=== PATIENT | female | born 1980 | race Caucasian/White ===

== ENCOUNTER 2016-03-28 10:44 | Emergency (ER) | payer OTHER ==
[2016-03-28] MEDS ORDERED: ACETAMINOPHEN 325 MG TAB As Ordered ONE (11:35)
[2016-03-28] MEDS ORDERED: IBUPROFEN 600 MG TAB As Ordered ONE (11:35)
--- NOTE | 2016-03-28 12:44 | REP ---
Clinical: Trauma . Technique: AP, lateral, bilateral oblique views of the left elbow. Findings: No acute fracture or dislocation is appreciated. Joint spaces and surrounding soft tissues appear normal. Lateral view demonstrates normal positioning to the anterior and posterior fat pads without evidence for effusion/hemarthrosis. No subcutaneous emphysema or foreign body identified. Impression: Normal left elbow radiographs. No fracture or dislocation identified. Signed by Walker Parker MD 03/28/2016 12:35 P
--- NOTE | 2016-03-28 13:20 | EDDOCDS ---
Physician Documentation [facility] Name: Barbara Gutierrez Age: 35 yrs Sex: Female : 1980 Arrival Date: 03/28/2016 Time: 10:44 Bed TR8 Private MD: NO PRIMARY PHYSICIAN, . Disposition: 03/28/16 13:02 Discharged to Home/Self Care. Impression: Contusion of left elbow. - Condition is Stable. - Discharge Instructions: Elbow Contusion. - Prescriptions for Ibuprofen 600 mg Oral Tablet - take 1 tablet by ORAL route every 6 hours As needed take with food; 30 tablet. Tylenol 325 mg Oral Tablet - take 2 tablet by ORAL route every 6 hours as needed; 1 bottle. - Medication Reconciliation, Local Pharmacy Hours form. - Follow up: [facility]; When: 4 - 5 days; Reason: Continuance of care. Follow up: Emergency Department; When: As needed; Reason: Worsening of conditions. - Problem is new. - Symptoms have improved. Historical: - Allergies: no known allergies; - Social history: Smoking status: Patient uses tobacco products, heavy tobacco smoker. No barriers to communication noted, The patient speaks fluent Malaysian. - Family history: Not pertinent. - : The pt / caregiver states he / she is not on anticoagulants. Home medication list is obtained from the patient. - Exposure Risk Screening:: None identified. 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 1 in. (154.94 cm) (R); 12:55 BP 121 / 78; Pulse 78; Resp 18; Temp 98.3(O); Pulse Ox 98% on R/A; Pain 1/10; dem1 10:45 Body Mass Index 26.45 (63.50 kg, 154.94 cm) dd6 MDM: 11:30 Sling ordered. dk1 11:30 Ice Pack ordered. dk1 11:30 Ibuprofen 600 mg PO once ordered. dk1 11:30 Acetaminophen Tablet 650 mg PO once ordered. dk1 11:30 Elbow, Complete Ordered. EDMS 12:10 Financial registration complete. lg 12:12 [facility] Payment Agreement was scanned into [employer] and attached to record. jp5 12:12 Undo -Financial registration. jp5 12:12 Financial registration complete. jp5 Administered Medications: 11:38 Drug: Ibuprofen 600 mg [ibuprofen 600 mg tablet (1 tabs)] Route: PO; kcs 11:38 Drug: Acetaminophen 650 mg [acetaminophen 325 mg tablet (2 tabs)] Route: PO; kcs Signatures: Dispatcher [employer] EDMS Yary Harrell, RN RN dls Jessica Best, Reg Reg lg Robert Koenig, PA-C PA-C dk1 Suyapa Galarza RN RN ms18 Hyacinth García jp5 Ghazal De La O RN kcs The chart was reviewed and I authenticate all verbal orders and agree with the evaluation and treatment provided.Attachments: 12:12 [facility] Payment Agreement jp5 MTDD
--- NOTE | 2016-03-28 13:20 | EDDOCDS ---
Nurse's Notes [facility] Name: Barbara Gutierrez Age: 35 yrs Sex: Female : 1980 Arrival Date: 03/28/2016 Time: 10:44 Bed TR8 Private MD: NO PRIMARY PHYSICIAN, . Diagnosis: Contusion of left elbow Presentation: 03/28 11:03 Presenting complaint: Patient states: Pt presents with injury to left arm and elbow pt dls fell on the ice this morning. Adult Sepsis Screening: The patient does not have new or worsening altered mentation. Patient's respiratory rate is less than 22. Systolic blood pressure is greater than 100. Patient has a qSOFA score of 0- Negative Sepsis Screen. Suicide/Homicide risk assessment- the patient denies having any suicidal and/or homicidal ideations and does not present with any other emotional, behavioral or mental health complaints. 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 Transition of care: patient was not received from another setting of care. 11:03 Acuity: ROSANA Level 4 dls 11:03 Method Of Arrival: Walkin/Carried/Asstd dls Triage Assessment: 11:05 General: Appears uncomfortable, well developed, Behavior is cooperative. Pain: Pain dls currently is 5 out of 10 on a pain scale. HIV screening NA for this visit Offered previously. 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 No barriers to communication noted, The patient speaks fluent French. - Family history: Not pertinent. - : The pt / caregiver states he / she is not on anticoagulants. Home medication list is obtained from the patient. - Exposure Risk Screening:: None identified. Screenin:17 Screening information is obtained from the patient. Fall risk: No risks identified. ms18 Assistance ADL's: requires no assistance with activities of daily living. Abuse/DV Screen: The patient / caregiver reports he/she is: not in a situation that causes fear, pain or injury. Nutritional screening: No deficits noted. Advance Directives: There is no living will. home support is adequate. Assessment: 13:17 General: Appears in no apparent distress, comfortable, Behavior is appropriate for age, ms18 cooperative. Pain: Location: left elbow Pain currently is 5 out of 10 on a pain scale. Neurological: No deficits noted. Respiratory: No deficits noted. Derm: Skin is pink, warm & dry. Musculoskeletal: Range of motion limited in left elbow No deformity noted. Vital Signs: 10:45 BP 148 / 85; Pulse 111; Resp 18 S; Temp 97.4(O); Pulse Ox 100% on R/A; Weight 63.5 kg dd6 (R); Height 5 ft. 1 in. (154.94 cm) (R); 12:55 BP 121 / 78; Pulse 78; Resp 18; Temp 98.3(O); Pulse Ox 98% on R/A; Pain 1/10; dem1 10:45 Body Mass Index 26.45 (63.50 kg, 154.94 cm) dd6 Vitals: 10:45 Log In Time: March 28, 2016 at 10:43. dd6 ED Course: 10:45 Patient visited by Jonathan Ro PCA. dd6 10:45 NO PRIMARY PHYSICIAN, . is Private Physician. dd6 10:45 Patient moved to Waiting dd6 10:46 Patient moved to Pre RCE dd6 11:05 Triage Initiated dls 11:18 Robert Koenig PA-C is PHCP. dk1 11:18 Julisa Helton MD is Attending Physician. dk1 11:27 Patient moved to Triage 2 ms18 11:28 Patient visited by Robert Koenig PA-C. dk1 11:38 Patient moved to PR1 / 25 ms18 11:52 Patient moved to TR2 kcs 12:12 [facility] Payment Agreement was scanned into [employer] and attached to record. jp5 12:50 Patient moved to PR2 / 26 ct3 12:55 Elbow, Complete Returned. EDMS 12:56 Patient visited by Kimmy Delong. dem1 13:02 [facility] is Referral Physician. dk1 13:17 Patient moved to TR8 ms18 13:17 The patient / caregiver is instructed regarding the plan of care and ED course. Patient ms18 has correct armband on for positive identification. Property sent home with patient. :Personal belongings accompany Pt. 13:17 No IV's were initiated during this patient's visit. No procedures done that require ms18 assistance. 13:17 Sling applied to left arm. Patient with positive distal sensation and brisk distal ms18 capillary refill after application. Administered Medications: 11:38 Drug: Ibuprofen 600 mg [ibuprofen 600 mg tablet (1 tabs)] Route: PO; kcs 11:38 Drug: Acetaminophen 650 mg [acetaminophen 325 mg tablet (2 tabs)] Route: PO; kcs Order Results: Radiology Order: Elbow, Complete Test: Elbow, Complete REASON FOR EXAMINATION: Trauma; Clinical: Trauma .; ; Technique: AP, lateral, bilateral oblique views of the left elbow.; ; Findings:; No acute fracture or dislocation is appreciated. Joint spaces and surrounding; soft tissues appear normal. Lateral view demonstrates normal positioning to the; anterior and posterior fat pads without evidence for effusion/hemarthrosis. No; subcutaneous emphysema or foreign body identified.; ; Impression:; Normal left elbow radiographs. No fracture or dislocation identified.; ; ; Signed by; Walker Parker MD 03/28/2016 12:35 P; Outcome: 13:02 Discharge ordered by Provider. dk1 13:17 Discharge Assessment: Patient awake, alert and oriented x 3. No cognitive and/or ms18 functional deficits noted. Patient verbalized understanding of disposition instructions. patient administered narcotics - no. The following High Risk Discharge criteria are identified: None. Discharged to home ambulatory. Condition: good Condition: stable Condition: improved. Discharge instructions given to patient, Instructed on discharge instructions, follow up and referral plans. medication usage, Demonstrated understanding of instructions, medications, Pt was receptive of discharge instructions/ teaching. Prescriptions given X 2. No special radiology studies were completed. 13:19 Patient left the ED. ms18 Signatures: Dispatcher [employer] EDMS Ghazal De La O RN RN kcs Scott, Debra, RN RN dls Keyes, David, PA-C PA-C dk1 Jonathan Ro, DAIRY MANUFACTURING TECHNOLOGIST DAIRY MANUFACTURING TECHNOLOGIST dd6 Gardenia Abebe, DAIRY MANUFACTURING TECHNOLOGIST DAIRY MANUFACTURING TECHNOLOGIST ct3 Kimmy Delong dem1 Suyapa Galarza RN RN ms18 Hyacinth García 5 MTDD
--- NOTE | 2016-03-30 14:20 | EDDOCDS ---
Physician Documentation [facility] Name: Barbara Gutierrez Age: 35 yrs Sex: Female : 1980 Arrival Date: 03/28/2016 Time: 10:44 Bed TR8 Private MD: NO PRIMARY PHYSICIAN, . Disposition: 03/28/16 13:02 Discharged to Home/Self Care. Impression: Contusion of left elbow. - Condition is Stable. - Discharge Instructions: Elbow Contusion. - Prescriptions for Ibuprofen 600 mg Oral Tablet - take 1 tablet by ORAL route every 6 hours As needed take with food; 30 tablet. Tylenol 325 mg Oral Tablet - take 2 tablet by ORAL route every 6 hours as needed; 1 bottle. - Medication Reconciliation, Local Pharmacy Hours form. - Follow up: [facility]; When: 4 - 5 days; Reason: Continuance of care. Follow up: Emergency Department; When: As needed; Reason: Worsening of conditions. - Problem is new. - Symptoms have improved. Historical: - Allergies: no known allergies; - Social history: Smoking status: Patient uses tobacco products, heavy tobacco smoker. No barriers to communication noted, The patient speaks fluent Vietnamese. - Family history: Not pertinent. - : The pt / caregiver states he / she is not on anticoagulants. Home medication list is obtained from the patient. - Exposure Risk Screening:: None identified. 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 1 in. (154.94 cm) (R); 12:55 BP 121 / 78; Pulse 78; Resp 18; Temp 98.3(O); Pulse Ox 98% on R/A; Pain 1/10; dem1 10:45 Body Mass Index 26.45 (63.50 kg, 154.94 cm) dd6 MDM: 11:30 Sling ordered. dk1 11:30 Ice Pack ordered. dk1 11:30 Ibuprofen 600 mg PO once ordered. dk1 11:30 Acetaminophen Tablet 650 mg PO once ordered. dk1 11:30 Elbow, Complete Ordered. EDMS 12:10 Financial registration complete. lg 12:12 [facility] Payment Agreement was scanned into [employer] and attached to record. jp5 12:12 Undo -Financial registration. jp5 12:12 Financial registration complete. jp5 14:32 T-Sheet-- Draft Copy was scanned into [employer] and attached to record. gb Administered Medications: 11:38 Drug: Ibuprofen 600 mg [ibuprofen 600 mg tablet (1 tabs)] Route: PO; kcs 11:38 Drug: Acetaminophen 650 mg [acetaminophen 325 mg tablet (2 tabs)] Route: PO; kcs Signatures: Dispatcher [employer] EDYary Chatman, RN RN dls Lavinia Mathur, Reg Reg gb Jessica Best, Reg Reg lg Robert Koenig, PA-C PA-C dk1 Suyapa Galarza RN RN ms18 Hyacinth García jp5 Ghazal De La O RN kcs The chart was reviewed and I authenticate all verbal orders and agree with the evaluation and treatment provided.Attachments: 12:12 [facility] Payment Agreement jp5 14:32 T-Sheet-- Draft Copy gb Chart Complete MTDD
--- NOTE | 2016-03-30 14:20 | EDDOCDS ---
Physician Documentation [facility] Name: Barbara Gutierrez Age: 35 yrs Sex: Female : 1980 Arrival Date: 03/28/2016 Time: 10:44 Bed TR8 Private MD: NO PRIMARY PHYSICIAN, . Disposition: 03/28/16 13:02 Discharged to Home/Self Care. Impression: Contusion of left elbow. - Condition is Stable. - Discharge Instructions: Elbow Contusion. - Prescriptions for Ibuprofen 600 mg Oral Tablet - take 1 tablet by ORAL route every 6 hours As needed take with food; 30 tablet. Tylenol 325 mg Oral Tablet - take 2 tablet by ORAL route every 6 hours as needed; 1 bottle. - Medication Reconciliation, Local Pharmacy Hours form. - Follow up: [facility]; When: 4 - 5 days; Reason: Continuance of care. Follow up: Emergency Department; When: As needed; Reason: Worsening of conditions. - Problem is new. - Symptoms have improved. Historical: - Allergies: no known allergies; - Social history: Smoking status: Patient uses tobacco products, heavy tobacco smoker. No barriers to communication noted, The patient speaks fluent Niuean. - Family history: Not pertinent. - : The pt / caregiver states he / she is not on anticoagulants. Home medication list is obtained from the patient. - Exposure Risk Screening:: None identified. 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 1 in. (154.94 cm) (R); 12:55 BP 121 / 78; Pulse 78; Resp 18; Temp 98.3(O); Pulse Ox 98% on R/A; Pain 1/10; dem1 10:45 Body Mass Index 26.45 (63.50 kg, 154.94 cm) dd6 MDM: 11:30 Sling ordered. dk1 11:30 Ice Pack ordered. dk1 11:30 Ibuprofen 600 mg PO once ordered. dk1 11:30 Acetaminophen Tablet 650 mg PO once ordered. dk1 11:30 Elbow, Complete Ordered. EDMS 12:10 Financial registration complete. lg 12:12 [facility] Payment Agreement was scanned into [employer] and attached to record. jp5 12:12 Undo -Financial registration. jp5 12:12 Financial registration complete. jp5 14:32 T-Sheet-- Draft Copy was scanned into [employer] and attached to record. gb Administered Medications: 11:38 Drug: Ibuprofen 600 mg [ibuprofen 600 mg tablet (1 tabs)] Route: PO; kcs 11:38 Drug: Acetaminophen 650 mg [acetaminophen 325 mg tablet (2 tabs)] Route: PO; kcs Signatures: Dispatcher [employer] EDYary Chatman, RN RN dls Lavinia Mathur, Reg Reg gb Jessica Best, Reg Reg lg Robert Koenig, PA-C PA-C dk1 Suyapa Galarza RN RN ms18 Hyacinth García jp5 Ghazal De La O RN kcs The chart was reviewed and I authenticate all verbal orders and agree with the evaluation and treatment provided.Attachments: 12:12 [facility] Payment Agreement jp5 14:32 T-Sheet-- Draft Copy gb Chart Complete MTDD
--- NOTE | 2016-03-30 14:21 | EDDOCDS ---
Nurse's Notes [facility] Name: Barbara Gutierrez Age: 35 yrs Sex: Female : 1980 Arrival Date: 03/28/2016 Time: 10:44 Bed TR8 Private MD: NO PRIMARY PHYSICIAN, . Diagnosis: Contusion of left elbow Presentation: 03/28 11:03 Presenting complaint: Patient states: Pt presents with injury to left arm and elbow pt dls fell on the ice this morning. Adult Sepsis Screening: The patient does not have new or worsening altered mentation. Patient's respiratory rate is less than 22. Systolic blood pressure is greater than 100. Patient has a qSOFA score of 0- Negative Sepsis Screen. Suicide/Homicide risk assessment- the patient denies having any suicidal and/or homicidal ideations and does not present with any other emotional, behavioral or mental health complaints. 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 Transition of care: patient was not received from another setting of care. 11:03 Acuity: ROSANA Level 4 dls 11:03 Method Of Arrival: Walkin/Carried/Asstd dls Triage Assessment: 11:05 General: Appears uncomfortable, well developed, Behavior is cooperative. Pain: Pain dls currently is 5 out of 10 on a pain scale. HIV screening NA for this visit Offered previously. 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 No barriers to communication noted, The patient speaks fluent Turkmen. - Family history: Not pertinent. - : The pt / caregiver states he / she is not on anticoagulants. Home medication list is obtained from the patient. - Exposure Risk Screening:: None identified. Screenin:17 Screening information is obtained from the patient. Fall risk: No risks identified. ms18 Assistance ADL's: requires no assistance with activities of daily living. Abuse/DV Screen: The patient / caregiver reports he/she is: not in a situation that causes fear, pain or injury. Nutritional screening: No deficits noted. Advance Directives: There is no living will. home support is adequate. Assessment: 13:17 General: Appears in no apparent distress, comfortable, Behavior is appropriate for age, ms18 cooperative. Pain: Location: left elbow Pain currently is 5 out of 10 on a pain scale. Neurological: No deficits noted. Respiratory: No deficits noted. Derm: Skin is pink, warm & dry. Musculoskeletal: Range of motion limited in left elbow No deformity noted. Vital Signs: 10:45 BP 148 / 85; Pulse 111; Resp 18 S; Temp 97.4(O); Pulse Ox 100% on R/A; Weight 63.5 kg dd6 (R); Height 5 ft. 1 in. (154.94 cm) (R); 12:55 BP 121 / 78; Pulse 78; Resp 18; Temp 98.3(O); Pulse Ox 98% on R/A; Pain 1/10; dem1 10:45 Body Mass Index 26.45 (63.50 kg, 154.94 cm) dd6 Vitals: 10:45 Log In Time: March 28, 2016 at 10:43. dd6 ED Course: 10:45 Patient visited by Jonathan Ro PCA. dd6 10:45 NO PRIMARY PHYSICIAN, . is Private Physician. dd6 10:45 Patient moved to Waiting dd6 10:46 Patient moved to Pre RCE dd6 11:05 Triage Initiated dls 11:18 Robert Koenig PA-C is PHCP. dk1 11:18 Julisa Helton MD is Attending Physician. dk1 11:27 Patient moved to Triage 2 ms18 11:28 Patient visited by Robert Koenig PA-C. dk1 11:38 Patient moved to PR1 / 25 ms18 11:52 Patient moved to TR2 kcs 12:12 [facility] Payment Agreement was scanned into [employer] and attached to record. jp5 12:50 Patient moved to PR2 / 26 ct3 12:55 Elbow, Complete Returned. EDMS 12:56 Patient visited by Kimmy Delong. dem1 13:02 [facility] is Referral Physician. dk1 13:17 Patient moved to TR8 ms18 13:17 The patient / caregiver is instructed regarding the plan of care and ED course. Patient ms18 has correct armband on for positive identification. Property sent home with patient. :Personal belongings accompany Pt. 13:17 No IV's were initiated during this patient's visit. No procedures done that require ms18 assistance. 13:17 Sling applied to left arm. Patient with positive distal sensation and brisk distal ms18 capillary refill after application. 14:32 T-Sheet-- Draft Copy was scanned into [employer] and attached to record. gb Administered Medications: 11:38 Drug: Ibuprofen 600 mg [ibuprofen 600 mg tablet (1 tabs)] Route: PO; kcs 11:38 Drug: Acetaminophen 650 mg [acetaminophen 325 mg tablet (2 tabs)] Route: PO; kcs Order Results: Radiology Order: Elbow, Complete Test: Elbow, Complete REASON FOR EXAMINATION: Trauma; Clinical: Trauma .; ; Technique: AP, lateral, bilateral oblique views of the left elbow.; ; Findings:; No acute fracture or dislocation is appreciated. Joint spaces and surrounding; soft tissues appear normal. Lateral view demonstrates normal positioning to the; anterior and posterior fat pads without evidence for effusion/hemarthrosis. No; subcutaneous emphysema or foreign body identified.; ; Impression:; Normal left elbow radiographs. No fracture or dislocation identified.; ; ; Signed by; Walker Parker MD 03/28/2016 12:35 P; Outcome: 13:02 Discharge ordered by Provider. dk1 13:17 Discharge Assessment: Patient awake, alert and oriented x 3. No cognitive and/or ms18 functional deficits noted. Patient verbalized understanding of disposition instructions. patient administered narcotics - no. The following High Risk Discharge criteria are identified: None. Discharged to home ambulatory. Condition: good Condition: stable Condition: improved. Discharge instructions given to patient, Instructed on discharge instructions, follow up and referral plans. medication usage, Demonstrated understanding of instructions, medications, Pt was receptive of discharge instructions/ teaching. Prescriptions given X 2. No special radiology studies were completed. 13:19 Patient left the ED. ms18 Signatures: Dispatcher [employer] EDGhazal Cristina, RN Yary Gillespie RN RN dls Lavinia Mathur, Reg Reg Robert Devries, PA-C PA-C dk1 Jonathan Ro, GROUP HOME COUNSELOR GROUP HOME COUNSELOR dd6 Gardenia Abebe, GROUP HOME COUNSELOR GROUP HOME COUNSELOR ct3 Kimmy Delong Mallory, RN RN ms18 Hyacinth García jp5 Chart Complete MTDD
== END 2016-03-28 13:19 | disposition home or self-care (01) ==
LOC: M ED 10:44
DX: S50.02XA Contusion of left elbow, initial encounter (principal); W00.9XXA Unspecified fall due to ice and snow, initial encounter; Y92.89 Other specified places as the place of occurrence of the external cause; Y93.89 Activity, other specified; Y99.8 Other external cause status; Z72.0 Tobacco use